=== PATIENT | male | born 1945 | race Caucasian/White ===

== ENCOUNTER 2020-09-21 08:50 | Outpatient (CLI) | payer MEDICARE, MEDICAID, SELFPAY ==
--- NOTE | ~2020-09-21 | US_ITS ---
EXAMINATION: US retroperitoneal comp DATE: 09/21/2020 09:41 INDICATION: Left renal mass TECHNIQUE: Multiple ultrasound grayscale images of the kidneys were obtained. COMPARISON: CT dated 02/26/2018 and 05/11/2015 FINDINGS: The right kidney measures 10.1 x 4.6 x 4.8 cm. The left kidney measures 11.0 x 5.7 x 5.0 cm. The kidn eys demonstrate normal echogenicity. 1.3 similar anechoic partially exophytic cyst at the lower pole of the left kidney. There is a second 3.0 cm anechoic cyst along side the superior pole of the left k idney. Upon review of prior coronal CT images from the study dated 2017 there appears to be a thin in tervening fat plane between the cystic lesion in the kidney and would favor a pancreatic pseudocyst i n the region of the tail of the pancreas which is difficult to discern due to diffuse fatty atrophy. There is no hydronephrosis in either kidney. No stones identified. The bladder is unremarkable but i ncompletely distended which mildly limits evaluation. IMPRESSION: 1. 1.3 cm cyst at the lower pole of the left kidney. The second 3 cm cystic structure near the upper pole the left kidney appears separate from the kidney on the prior CT images and would favor a pseud ocyst in the region of the tail of the pancreas. Correlate clinically for history of prior pancreatit is. Reviewed, dictated and finalized at location A. [facility] IMPRESSION: 1. 1.3 cm cyst at the lower pole of the left kidney. The second [address] ructure near the upper pole the left kidney appears separate from the kidney on the prior CT images and would favor a pseudocyst in the region of the tail of the pancreas. Correlate clinically for history of prior pancreatitis.
== END 2020-09-21 08:51 | disposition home or self-care (01) ==
PROVIDERS: PCP Internal Medicine; Visit Provider Internal Medicine
DX: N28.89 Other specified disorders of kidney and ureter (principal)
CPT/HCPCS: 76770

== ENCOUNTER 2020-12-10 22:08 | Emergency (ER) | payer MEDICARE, MEDICAID, SELFPAY ==
--- NOTE | ~2020-12-10 | CT_ITS ---
EXAMINATION: CT abdomen pelvis w con EXAM DATE: 12/11/2020 00:21 INDICATION: Mid abdominal pain for 7 hours, history of pancreas being removed. TECHNIQUE: Spiral CT of the abdomen and pelvis was performed following intravenous injection of 100 m L Omnipaque 350. Axial, coronal and sagittal images were reviewed. The dose-length product (DLP) fo r this examination was 1430.25 mGy-cm. The exposure was tailored according to patient size (auto mA exposure control), and iterative reconstruction (ASIR) was used as additional dose reduction techniqu e. Comparison is made to prior examination from 02/26/2018. FINDINGS: Moderately distended jejunum to the mid small bowel, where there is a midline abdominal tra nsition point indicated on axial image 105. Most likely adhesion related small bowel obstruction. The re is a small fat-containing abdominal wall hernia at the same level. Nearly collapsed ileum distal t o this, and only small amount of colonic stool. Patient has had subtotal colectomy, with an intact an astomosis site. There is moderate colonic diverticulosis. There is no adjacent inflammatory change t o suggest diverticulitis. Evidence of prior colostomy. Mildly diffusely heterogeneous low density liver without focal abnormality. Hepatic steatosis. Surgic al changes from pancreatic resection. Couple of contiguous cystic regions at the splenic hilum, large r lobulation measuring 3.4 x 2.8 cm (previously 3.0 x 2.4). Could be pseudocysts given that no histor y of cancer has been indicated, but can't exclude slow growing cystic pancreatic neoplasm, please cor relate this finding with patient's reason for pancreatic resection. There are cholecystectomy clips. Portal and splenic veins are patent. Kidneys enhance symmetrically . There is no hydronephrosis. There is 8 mm right adrenal gland adenoma unchanged compared to 2018. Spleen is unremarkable. Small splenule. The prostate is unremarkable. The bladder is unremarkable. There is no retroperitoneal or pelvic lymphadenopathy. There is moderate scattered arterioscleroti c disease. The heart is normal in size. There are no pericardial or pleural effusions. There are bibasilar tracy ear opacities, subsegmental atelectasis. There are no osteoblastic or osteolytic lesions identified. IMPRESSION: 1. Mid small bowel obstruction, probably adhesion etiology. 2. Pancreatic resection. Bilobulated cystic region at the splenic hilum, slight increase in size com pared to 2018. 3. Colonic diverticulosis. 4. Adrenal adenoma. 5. Hepatic steatosis. Reviewed, dictated and finalized at location A. IMPRESSION: 1. Mid small bowel obstruction, probably adhesion etiology. 2. Pancreatic resection. Bilobulated cystic region at the splenic hilum, sligh t increase in size compared to 2018. 3. Colonic diverticulosis. 4. Adrenal adenoma. 5. Hepatic steatosis.
[2020-12-10 22:15] VITALS: BP 178/93; PULSE 78; RESP 18; TEMP 36.6; O2SAT 98
--- NOTE | 2020-12-10 22:21 | ED.ABDPAIN ---
HPI - Abdominal Pain General Chief Complaint: Abdominal Pain Stated Complaint: amb Time Seen by Provider: 12/10/20 22:21 Source: patient Mode of arrival: EMS Limitations: no limitations History of Present Illness HPI narrative: 75-year-old man with a history of hypertension and diabetes comes in today complaining of abdominal pain that started this afternoon. Patient states that about 4 or 5 pm he began having abdominal pain but seemed to resolved. Pain came back after he ate at approximately 6:00 p.m.. Patient states he feels like he has to have a bowel movement but can't also complains of nausea but states he can't vomit. He denies chest pain, shortness breath, cough or cold symptoms, fever, dysuria, hematuria or prior similar symptoms. Patient states that he has had partial colectomy and a pancreatectomy in the past. He does not know why those procedures were performed. MD elicited complaint: abdominal pain Onset (ago): hour(s) (6) Pain Consistency: constant Location: diffuse Severity: severe Quality: cramping and sharp Radiation: none Migration to: no migration Exacerbating factors: movement Relieving factors: nothing Associated symptoms: nausea and constipation Related Data Home Medications Medication Instructions Recorded Confirmed carvedilol See Rx Instructions .ROUTE .COMPLEX 12/10/20 12/10/20 insulin aspart U-100 [Novolog See Rx Instructions .ROUTE .COMPLEX 12/10/20 12/10/20 U-100 Insulin aspart] insulin detemir U-100 [Levemir See Rx Instructions .ROUTE .COMPLEX 12/10/20 12/10/20 U-100 Insulin] [id number]-zevdgbqi-[id number] [Zenpep] 1 cap PO TID 12/10/20 12/10/20 losartan See Rx Instructions .ROUTE .COMPLEX 12/10/20 12/10/20 pravastatin See Rx Instructions .ROUTE .COMPLEX 12/10/20 12/10/20 tamsulosin See Rx Instructions .ROUTE .COMPLEX 12/10/20 12/10/20 Allergies Allergy/AdvReac Type Severity Reaction Status Date / Time No Known Allergies Allergy Verified 12/10/20 22:40 Review of Systems Constitutional: Constitutional: Denies chills, Denies fever(s) and Denies weakness Eyes: Eyes: Denies change in vision and Denies photophobia ENT: Denies dysphagia, Denies nasal congestion and Denies sore throat Cardiovascular: Cardiovascular: Denies chest pain and Denies radiating jaw, neck or arm pain Respiratory: Respiratory: Denies cough, Denies dyspnea and Denies wheezing Gastrointestinal: Gastrointestinal: Reports abdominal pain, Reports bloating, Denies diarrhea, Reports nausea and Denies vomiting Genitourinary: Genitourinary: Denies dysuria and Denies urinary frequency Musculoskeletal: Musculoskeletal: Denies back pain, Denies arthralgias and Denies joint swelling Integumentary/Breasts: Skin/Breast: Denies pruritus, Denies erythema and Denies rash Neurologic: Denies vertigo, Denies dizziness and Denies syncope Hematologic/Lymphatic: Hematologic/Lymphatic: Denies easy bleeding and Denies easy bruising Allergic/Immunologic: Allergic/Immunologic: Denies lip swelling and Denies throat swelling PMFSH Past Medical History Medical History (Updated 12/11/20 @ 01:39 by Gómez Mckeon MD) BPH (benign prostatic hyperplasia) Coronary artery disease Diabetes Dyslipidemia Hypertension Surgical History Surgical History (Updated 12/10/20 @ 22:33 by Gómez Mckeon MD) History of pancreatectomy History of partial colectomy Social History Social History (Updated 12/10/20 @ 22:34 by Gómez Mckeon MD) Smoking status: Never smoker Alcohol intake: never Substance use: never Exam Const: General: alert and ill appearing acutely Nutritional Appearance: obese Orientation/consciousness: patient oriented x3 Other: moderate to severe distress. HENMT: Head: normal to inspection General nose exam: Normal nares present Face and sinus: normal facial exam Mouth: Yes moist mucous membranes Throat: posterior oropharynx normal Eyes: Conjunctivae: conjunctivae normal Pupils: Equal, round
[2020-12-10] MEDS: SODIUM CHLORIDE 0.9% IV 500 ML 999 ML IV CONT (22:41)
[2020-12-10] MEDS: ONDANSETRON INJ 4 MG/2 ML VIAL IV PUSH (22:42)
[2020-12-10] MEDS: HYDROmorphone HCL INJ (*CRX) 2 MG/ML VIAL 0.5 MG IV PUSH (22:43)
[2020-12-10] MEDS: PANTOPRAZOLE SODIUM IV 40 MG VIAL IV PUSH (22:45)
[2020-12-10 22:50] VITALS: BP 168/73; PULSE 88; RESP 16; O2SAT 92
[2020-12-10 23:22] LABS: Basophils Absolute Auto 0.02 K/mm3 (0.00-0.10); Basophils Percent Auto 0.2 % (0.0-1.0); Eosinophils Percent Auto 1.2 % (1.0-6.0); Hematocrit 46.2 % (37.0-46.0); Hemoglobin 15.7 g/dL (12.4-15.3); Immature Granulocyte Absolute 0.05 K/mm3 (0.00-0.00); Immature Granulocyte Percent A 0.6 % (0.0-0.0); Lymphocytes Absolute Auto 0.88 K/mm3 (1.10-4.50); Lymphocytes Percent Auto 10.9 % (18.0-42.0); Mean Corpuscular Hemoglobin 30.7 pg (27.0-31.0); Mean Corpuscular Volume 90.2 fL (78.0-102.0); Mean Platelet Volume 9.4 fl (8.7-11.0); Monocytes Absolute Auto 0.29 K/mm3 (0.10-0.90); Monocytes Percent Auto 3.6 % (2.0-11.0); Neutrophils Absolute Auto 6.7 K/mm3 (1.7-7.2); Neutrophils Percent Auto 83.5 % (50.0-70.0); Platelet Count Result 164 K/mm3 (150-420); Red Blood Count 5.12 M/mm3 (4.70-6.10); Red Cell Distribution Width 14.6 % (11.6-14.4); White Blood Count 8.1 K/mm3 (4.8-10.8)
--- NOTE | 2020-12-10 23:24 | PC.NURSE ---
patient wanting water, explained can't until all test done, patient screaming get out & don't come back I hate you.
[2020-12-10 23:29] VITALS: BP 177/80; PULSE 90; RESP 18; O2SAT 90
[2020-12-10 23:35] LABS: Partial Thromboplastin Time 24.5 SEC (23.90-30.70); Prothrombin Time 10.9 Seconds (9.50-12.10)
[2020-12-10 23:40] LABS: Alanine Aminotransferase 114 U/L (16-63); Albumin Level 3.8 g/dL (3.4-5.0); Alkaline Phosphatase 186 U/L (46-116); Anion Gap 11 mmol/L (8-16); Aspartate Amino Transferase 80 U/L (15-37); Bilirubin,Total 1.1 mg/dL (0.00-1.00); Blood Urea Nitrogen 24 mg/dL (7-18); Calcium 8.7 mg/dL (8.5-10.1); Carbon Dioxide 26 mmol/L (21-32); Chloride 100 mmol/L (98-108); Estimated Glomerular Filt Rate 38; Glucose 382 mg/dL (70-99); Lipase 20 U/L (73-393); Osmolality Calculated 304 mOsm/kg (285-295); Potassium 4.5 mmol/L (3.5-5.1); Sodium 137 mmol/L (136-145); Total Protein 7.2 g/dL (6.4-8.2)
[2020-12-10 23:47] LABS: Lactic Acid Reflex 1.6 mmol/L (0.4-2.0)
[2020-12-11 01:23] VITALS: BP 168/70; PULSE 78; RESP 18; TEMP 36.6; O2SAT 92
--- NOTE | 2020-12-11 01:23 | PC.NURSE ---
called [facility] per patients request. Lauro to have MD call
[2020-12-11] MEDS: HYDROmorphone HCL INJ (*CRX) 2 MG/ML VIAL 0.5 MG IV PUSH (01:26)
[2020-12-11] MEDS: ONDANSETRON INJ 4 MG/2 ML VIAL IV PUSH ×2 (01:26→02:30)
[2020-12-11] MEDS: SODIUM CHLORIDE 0.9% IV 1,000 ML 150 ML IV CONT (02:50)
[2020-12-11 02:58] VITALS: BP 170/82; PULSE 90; RESP 22; TEMP 36.8; O2SAT 95
== END 2020-12-11 03:01 | disposition short-term general hospital (02) ==
PROVIDERS: Emergency Provider Emergency Medicine; PCP Internal Medicine
DX: K56.609 Unspecified intestinal obstruction, unspecified as to partial versus complete obstruction (principal); I25.10 Atherosclerotic heart disease of native coronary artery without angina pectoris; E11.9 Type 2 diabetes mellitus without complications; E78.5 Hyperlipidemia, unspecified; I10 Essential (primary) hypertension
CPT/HCPCS: 36415; 74177; 80053; 83605; 83690; 85025; 85610; 85730; 87040; 96374; 96375; 96376; 99285; C9113; J1170; J2405; J7030; J7040; Q9967

== ENCOUNTER 2022-06-05 12:06 | Outpatient (CLI) | payer MEDICARE, MEDICAID, SELFPAY ==
--- NOTE | ~2022-06-05 | XR_ITS ---
EXAM: XR foot LT min 3V DATE: 06/05/2022 12:47 HISTORY: L ant, post mid foot pain after kicking injury last night . COMPARISON: None available. FINDINGS: Decreased mineralization. Transverse minimally displaced fracture the proximal aspect of t he left fifth proximal phalange. No lytic or blastic lesion. Mild hallux valgus. Plantar enthesopathy . No erosion or periosteal change. Soft tissues within normal limits. IMPRESSION: Transverse, minimally displaced fracture the proximal aspect of the left fifth proximal p halange of uncertain age, correlate with pain/point tenderness. Reviewed, dictated and finalized at location K. IMPRESSION: Transverse, minimally displaced fracture the proximal aspect of the left fifth proximal phalange of uncertain age, correlate with pain/point tende rness.
== END 2022-06-05 12:07 | disposition home or self-care (01) ==
LOC: CHSIMG 12:09
PROVIDERS: PCP Internal Medicine; Visit Provider Nurse Practitioner Family
DX: M79.672 Pain in left foot (principal); S99.922A Unspecified injury of left foot, initial encounter
CPT/HCPCS: 73630

== ENCOUNTER 2023-03-22 12:25 | Observation (INO) | payer MEDICARE, MEDICAID, SELFPAY ==
--- NOTE | ~2023-03-22 | XR_ITS ---
EXAMINATION: XR knee RT 3V DATE: 03/22/2023 12:52 INDICATION: Right knee injury and pain. TECHNIQUE: 3 views of right knee were obtained. COMPARISON: None. FINDINGS: There is lateral subluxation of tibia with respect to distal femur. No fracture. There is s evere osteoarthritis of medial compartment, moderate osteoarthritis of lateral compartment, and mild osteoarthritis of patellofemoral compartment. There is a small knee joint effusion. There is widespre ad subcutaneous edema. IMPRESSION: 1. Severe right knee osteoarthritis. 2. Small right knee joint effusion. Reviewed, dictated and finalized at location A.
--- NOTE | ~2023-03-22 | US_ITS ---
EXAMINATION: US venous doppler LE RT DATE: 03/22/2023 13:16 INDICATION: Right lower limb swelling. TECHNIQUE: Grayscale ultrasound images without and with compression and Doppler ultrasound images of the right lower extremity veins were obtained. COMPARISON: None. FINDINGS: There is thrombus in the right common femoral vein, profunda femoral vein, femoral vein, popliteal ve in, and posterior tibial and gastrocnemius veins. IMPRESSION: 1. Extensive deep vein thrombosis in right lower limb. I called this result to Dr. Garcia. Reviewed, dictated and finalized at location A.
[2023-03-22 12:30] VITALS: BP 186/81; PULSE 80; RESP 20; TEMP 36.5; O2SAT 96
--- NOTE | 2023-03-22 12:37 | ED.LOWEXIN ---
HPI - Extremity Injury (Lower) General Chief Complaint: Extremity Injury, Lower Stated Complaint: KNEE PAIN Time Seen by Provider: 03/22/23 12:29 Source: patient Mode of arrival: ambulatory Limitations: no limitations History of Present Illness MD complaint: knee injury (right) Onset (ago): day(s) (1) Injury: Right: knee Type of Injury: other (twisted accidentally) Place: home Severity: moderate Severity scale (1-10): 8 Relieving factors: rest Exacerbating factors: movement Context: walking Associated symptoms: able to partially bear weight and ambulatory Other symptoms: other (swelling of RLEx) Related Data Home Medications Medication Instructions Recorded Confirmed carvedilol 25 mg tablet See Rx Instructions .Route .COMPLEX 12/10/20 12/10/20 insulin aspart U-100 100 unit/mL See Rx Instructions .Route .COMPLEX 12/10/20 12/10/20 subcutaneous solution (Novolog U-100 Insulin aspart) insulin detemir U-100 100 unit/mL See Rx Instructions .Route .COMPLEX 12/10/20 12/10/20 subcutaneous solution (Levemir U-100 Insulin) nesxeb-dtyotyge-[id number] 1 cap PO TID 12/10/20 12/10/20 5,000-17,000-24,000 unit capsule, delayed rel (Zenpep) losartan 50 mg tablet See Rx Instructions .Route .COMPLEX 12/10/20 12/10/20 pravastatin 40 mg tablet See Rx Instructions .Route .COMPLEX 12/10/20 12/10/20 tamsulosin 0.4 mg capsule 0.4 mg PO DAILY 12/10/20 12/10/20 Allergies Allergy/AdvReac Type Severity Reaction Status Date / Time No Known Allergies Allergy Verified 03/22/23 12:41 Review of Systems Review of Systems: All systems reviewed & are unremarkable except as noted in HPI and below Constitutional: Constitutional: Reports no additional constitutional complaints Cardiovascular: Cardiovascular: Reports no additional cardiovascular complaints, Denies chest pain and Denies rapid heart rate Respiratory: Respiratory: Reports no additional respiratory complaints, Denies chest congestion and Denies cough Gastrointestinal: Gastrointestinal: Reports no additional gastrointestinal complaints, Denies abdominal pain and Denies bloating Musculoskeletal: Musculoskeletal: Reports no additional musculoskeletal complaints, Reports as per HPI, Reports arthralgias (right knee) and Reports muscle cramps (right Polo) Integumentary/Breasts: Skin/Breast: Reports system reviewed and no additional complaints, except as docu and Reports as per HPI Comments: edema RLEx Neurologic: Reports system reviewed and no additional complaints, except as documented and Reports as per HPI PMFSH Past Medical History Medical History BPH (benign prostatic hyperplasia) Coronary artery disease Diabetes Dyslipidemia Hypertension Surgical History Surgical History History of pancreatectomy History of partial colectomy Social History Social History Smoking status: Never smoker Alcohol intake: never Substance use: never Exam Const: General: healthy appearing and no acute distress Nutritional Appearance: well nourished and obese Orientation/consciousness: patient oriented x3 Limitations: no limitations HENMT: Head: normal to inspection Neck: Neck: normal visual inspection and no lymphadenopathy Chest: Chest palpation & inspection: normal inspection of the chest Resp: Effort & Inspection: normal respiratory effort, not labored and no retractions Cardio: Rate: regular rate Rhythm: regular rhythm Heart sounds: no murmurs GI: GI Palp: Yes Soft to palpation, No Tenderness to palpation present (GI), No Guarding due to palpation present (GI) and No Rigid due to palpation Skin: General skin exam: normal color Other: Edema R Polo Neuro: General: patient oriented x3 and moves all extremities Extrem: General: abnormal to inspection and edema (R Polo) right Other: te
[2023-03-22] MEDS: HYDROcodone/acetaminophen (*CRX) 5-325 MG TABLET 1 TAB PO (12:47)
[2023-03-22 13:54] LABS: Basophils Absolute Auto 0.03 K/mm3 (0.00-0.10); Basophils Percent Auto 0.4 % (0.0-1.0); Eosinophils Absolute Auto 0.17 K/mm3 (0.02-0.50); Eosinophils Percent Auto 2.4 % (1.0-6.0); Hematocrit 40.1 % (37.0-46.0); Hemoglobin 13.6 g/dL (12.4-15.3); Immature Granulocyte Absolute 0.04 K/mm3 (0.00-0.00); Immature Granulocyte Percent A 0.6 % (0.0-0.0); Mean Corpuscular HGB Conc 33.9 g/dL (32.0-36.0); Mean Corpuscular Hemoglobin 32.3 pg (27.0-31.0); Mean Corpuscular Volume 95.2 fL (78.0-102.0); Mean Platelet Volume 9.6 fl (8.7-11.0); Monocytes Absolute Auto 0.55 K/mm3 (0.10-0.90); Monocytes Percent Auto 7.8 % (2.0-11.0); Neutrophils Absolute Auto 5.1 K/mm3 (1.7-7.2); Neutrophils Percent Auto 71.8 % (50.0-70.0); Platelet Count Result 118 K/mm3 (150-420); Red Blood Count 4.21 M/mm3 (4.70-6.10); Red Cell Distribution Width 14.8 % (11.6-14.4); White Blood Count 7.1 K/mm3 (4.8-10.8)
[2023-03-22 14:07] LABS: Alanine Aminotransferase 123 U/L (16-63); Albumin Level 3.5 g/dL (3.4-5.0); Alkaline Phosphatase 223 U/L (46-116); Anion Gap 10 mmol/L (8-16); Aspartate Amino Transferase 66 U/L (15-37); Bilirubin,Total 0.5 mg/dL (0.00-1.00); Blood Urea Nitrogen 20 mg/dL (7-18); Calcium 8.7 mg/dL (8.5-10.1); Carbon Dioxide 27 mmol/L (21-32); Chloride 102 mmol/L (98-108); Estimated CRCL calculation 48 ml/min; Estimated Glomerular Filt Rate 44; Glucose 348 mg/dL (70-99); Osmolality Calculated 304 mOsm/kg (285-295); Sodium 139 mmol/L (136-145); Total Protein 7.1 g/dL (6.4-8.2)
[2023-03-22 14:10] LABS: Partial Thromboplastin Time 26.2 SEC (23.90-30.70); Prothrombin Time 10.5 Seconds (9.50-12.10)
[2023-03-22] MEDS: APIXABAN 2.5 MG TABLET 10 MG PO ×2 (14:53→20:50)
--- NOTE | 2023-03-22 14:57 | PM.IMHP ---
H&P: HPI History of Present Illness Date/Time: 03/22/23 14:57 Chief Complaint: Right lower extremity swelling and pain Narrative: Mr. Grajeda Is an 78-year-old gentleman who presented emergency room with complaints of right lower extremity swelling and pain. Patient states approximately 2 days ago he was getting up off of his couch and felt like he twisted his knee and he started having pain. Patient states the pain was not significant enough to take any Tylenol or ibuprofen. Patient states that the next morning he noticed he had swelling to his right lower extremity and the pain was mildly worse. Patient states over the next day the swelling and pain has significantly increased. Patient states he has chronic shortness of breath, but has not noticed any increasing shortness of breath. Patient denies any chest pain, lightheadedness, dizziness, syncopal, or near syncopal episodes. Patient states he has been taking all medications without any difficulty. Patient is extremely poor historian and knows that he take certain medications for his blood pressure and his cholesterol, but he is unsure of why he is on other medications. Patient states he does have a history of diabetes, secondary to having his pancreas removed, but he cannot tell me why his pancreas was removed. Patient states he also does have a history of DVT and multiple blood clots elsewhere in his body and was placed on an anticoagulant while at [facility] in [place], but he is unsure of how long ago this was and he cannot recall which leg he previously had a blood clot in. Did receive medical records from patient's primary care which does give a slightly more in-depth history. Per primary care's office patient has a known history of type 2 diabetes mellitus with hyperglycemia, hypertension, dyslipidemia, chronic kidney disease, chronic fatigue, RINCON, BPH, history of pulmonary embolism, and thoracic aortic aneurysm without rupture. There is no mention of pancreatic issues, but it does appear that patient is on pancrelipase with meals. Review of Systems Review of Systems: A 12 point review of systems was completed with patient all pertinent positive and negative per HPI the remainder are unremarkable. [facility] Past Medical History Medical History (Updated 03/22/23 @ 16:07 by Radha Goddard APRN) BPH (benign prostatic hyperplasia) Chronic kidney disease Coronary artery disease Diabetes Dyslipidemia Hypertension Pulmonary embolism Steatohepatitis, non-alcoholic Thoracic aortic aneurysm without rupture Surgical History Surgical History (Updated 03/22/23 @ 16:07 by Radha Goddard APRN) History of cholecystectomy History of pancreatectomy History of partial colectomy Social History Social History Smoking status: Never smoker Alcohol intake: never Substance use: never Substance use type: does not use Lack of Transportation: No Lack of Food: Never True Current Housing: I Have Housing Concerned About Future Housing: No Difficulty Paying Gas/Electric Bills: No Difficulty Paying for Meds: No Currently Unemployed: No Education: Decline to Answer Difficulty w/ Childcare or Family Care: No Spiritual care concerns: No Meds Home Medications and Allergies Home Medications Medication Instructions Recorded Confirmed Type carvedilol 25 mg tablet 25 mg PO BID 12/10/20 03/22/23 History insulin aspart U-100 100 unit/mL 60 unit subcut ACHS 12/10/20 03/22/23 History subcutaneous solution (Novolog U-100 Insulin aspart) insulin detemir U-100 100 unit/mL 120 unit subcut DAILY 12/10/20 03/22/23 History subcutaneous solution (Levemir U-100 Insulin) [id number]-[id number] 1 cap PO TIDWMEAL 12/10/20 03/22/23 History 5,000-17,000-24,000 unit capsule, delayed rel (Zenpep) losartan 50 mg tablet 50 mg PO DAILY 12/10/20 03/22/23 History pravastatin 40 m
[2023-03-22 15:00] VITALS: BP 182/80; PULSE 70; RESP 20; TEMP 36.7; O2SAT 96
[2023-03-22 16:00] VITALS: BP 165/73; PULSE 60; RESP 18; TEMP 36.3; O2SAT 98
[2023-03-22 16:55] LABS: Glucose Point of Care 178 mg/dl (65-105)
[2023-03-22] MEDS: oxyCODONE HCL (*CRX) 5 MG TAB IR PO ×2 (17:56→22:53)
[2023-03-22 18:06] LABS: Glucose Point of Care 166 mg/dl (65-105)
[2023-03-22 20:00] VITALS: BP 162/85; PULSE 65; RESP 17; RESP 18; TEMP 36.5; O2SAT 98
[2023-03-22 20:51] VITALS: PULSE 65
[2023-03-22] MEDS: carvediloL 12.5 MG TABLET 25 MG PO (20:51)
[2023-03-22] MEDS: traMADol HCL (*CRX) 50 MG TABLET PO (20:52)
[2023-03-22 20:53] LABS: Glucose Point of Care 271 mg/dl (65-105)
[2023-03-22] MEDS: INSULIN GLARGINE (*BKC) 1,000 UNITS/10 ML VIAL 120 UNITS SUB-Q (20:55)
[2023-03-22 23:55] VITALS: BP 162/85; PULSE 65; RESP 17; TEMP 36.5; O2SAT 98
--- NOTE | 2023-03-23 01:20 | PC.NURSE ---
Oxycodone given at this time for RLE pain at level 7.
--- NOTE | 2023-03-23 02:20 | PC.NURSE ---
Follow up pain score 0
--- NOTE | 2023-03-23 05:38 | PC.NURSE ---
Pt reports he is feeling much better, pain in RLE is greatly improved. States he would like to stay 1 extra day to make sure he is OK, also requesting a skin tag on buttocks be removed while he is here. Explained to pt he would need to see PCP for skin tag, but can ask SURGICAL SPECIALIST is possible. Pt states understanding.
--- NOTE | 2023-03-23 05:50 | PC.NURSE ---
Oxycodone given at this time for right knee pain at level 7
--- NOTE | 2023-03-23 06:23 | PC.NURSE ---
Follow up pain score 0
[2023-03-23 07:03] LABS: Anion Gap 9 mmol/L (8-16); Blood Urea Nitrogen 18 mg/dL (7-18); Carbon Dioxide 27 mmol/L (21-32); Chloride 101 mmol/L (98-108); Potassium 4.2 mmol/L (3.5-5.1); Sodium 137 mmol/L (136-145)
[2023-03-23 07:04] LABS: Alanine Aminotransferase 93 U/L (16-63); Albumin Level 3.3 g/dL (3.4-5.0); Alkaline Phosphatase 188 U/L (46-116); Aspartate Amino Transferase 29 U/L (15-37); Bilirubin,Total 0.7 mg/dL (0.00-1.00); Calcium 8.1 mg/dL (8.5-10.1); Estimated CRCL calculation 50 ml/min; Estimated Glomerular Filt Rate 49; Glucose 395 mg/dL (70-99); Osmolality Calculated 301 mOsm/kg (285-295); Total Protein 6.7 g/dL (6.4-8.2)
[2023-03-23 07:14] LABS: Basophils Absolute Auto 0.03 K/mm3 (0.00-0.10); Basophils Percent Auto 0.4 % (0.0-1.0); Eosinophils Absolute Auto 0.18 K/mm3 (0.02-0.50); Eosinophils Percent Auto 2.6 % (1.0-6.0); Hematocrit 39.8 % (37.0-46.0); Hemoglobin 13.4 g/dL (12.4-15.3); Immature Granulocyte Absolute 0.05 K/mm3 (0.00-0.00); Immature Granulocyte Percent A 0.7 % (0.0-0.0); Immature Platelet Fraction Pct 2.1 % (1.0-7.0); Lymphocytes Absolute Auto 1.47 K/mm3 (1.10-4.50); Lymphocytes Percent Auto 21.1 % (18.0-42.0); Mean Corpuscular HGB Conc 33.7 g/dL (32.0-36.0); Mean Corpuscular Hemoglobin 32.1 pg (27.0-31.0); Mean Corpuscular Volume 95.4 fL (78.0-102.0); Mean Platelet Volume 9.9 fl (8.7-11.0); Monocytes Absolute Auto 0.72 K/mm3 (0.10-0.90); Monocytes Percent Auto 10.3 % (2.0-11.0); Neutrophils Absolute Auto 4.5 K/mm3 (1.7-7.2); Neutrophils Percent Auto 64.9 % (50.0-70.0); Platelet Count Result 143 K/mm3 (150-420); Red Blood Count 4.17 M/mm3 (4.70-6.10); Red Cell Distribution Width 14.6 % (11.6-14.4)
--- NOTE | 2023-03-23 07:16 | PM.SD2 ---
Same Day Admit/Disch: HPI History of Present Illness Chief complaint: KNEE PAIN Narrative: Dion Grajeda is a 78 year old male [facility] Past Medical History Medical History BPH (benign prostatic hyperplasia) Chronic kidney disease Coronary artery disease Diabetes Dyslipidemia Hypertension Leg pain Pulmonary embolism Steatohepatitis, non-alcoholic Thoracic aortic aneurysm without rupture Surgical History Surgical History History of cholecystectomy History of pancreatectomy History of partial colectomy Social History Social History Smoking status: Never smoker Alcohol intake: never Substance use: never Substance use type: does not use Lack of Transportation: No Lack of Food: Never True Current Housing: I Have Housing Concerned About Future Housing: No Difficulty Paying Gas/Electric Bills: No Difficulty Paying for Meds: No Currently Unemployed: No Education: Decline to Answer Difficulty w/ Childcare or Family Care: No Spiritual care concerns: No Same Day Admit/Disch: Med Pre-admit Medications Home Medications Medication Instructions Recorded Confirmed Type carvedilol 25 mg tablet 25 mg PO BID 12/10/20 03/22/23 History insulin aspart U-100 100 unit/mL 60 unit subcut ACHS 12/10/20 03/22/23 History subcutaneous solution (Novolog U-100 Insulin aspart) insulin detemir U-100 100 unit/mL 120 unit subcut DAILY 12/10/20 03/22/23 History subcutaneous solution (Levemir U-100 Insulin) [id number]-[id number]-zuavnnz 1 cap PO TIDWMEAL 12/10/20 03/22/23 History 5,000-17,000-24,000 unit capsule, delayed rel (Zenpep) losartan 50 mg tablet 50 mg PO DAILY 12/10/20 03/22/23 History pravastatin 40 mg tablet 40 mg PO DAILY 12/10/20 03/22/23 History tamsulosin 0.4 mg capsule 0.8 mg PO DAILY 12/10/20 03/22/23 History aspirin 81 mg chewable tablet 81 mg PO DAILY 03/22/23 03/22/23 History fluticasone propionate 50 2 spray intranasal HS 03/22/23 03/22/23 History mcg/actuation nasal spray,suspension tramadol 50 mg tablet 50 mg PO Q6H PRN pain #20 tabs 03/23/23 Rx DS: Data Data Completed and Pending Labs on day of discharge: Labs from last 24 hours 03/23/23 03/22/23 03/22/23 05:00 20:48 18:00 WBC Pending RBC Pending Hgb Pending Hct Pending MCV Pending MCH Pending MCHC Pending RDW Pending Plt Count Pending MPV Pending Immature Gran % (Auto) Pending Neut % (Auto) Pending Lymph % (Auto) Pending Petroleum % (Auto) Pending Eos % (Auto) Pending Baso % (Auto) Pending Lymph # (Auto) Pending Petroleum # (Auto) Pending Eos # (Auto) Pending Baso # (Auto) Pending Abs Immat Gran (auto) Pending Absolute Neuts (auto) Pending Absolute Nucleated RBC Pending Nucleated RBC % Pending PT INR APTT Sodium 137 Potassium 4.2 Chloride 101 Carbon Dioxide 27 Anion Gap 9 BUN 18 Creatinine 1.39 H Estim Creat Clear Calc 50 Estimated GFR 49 L Glucose 395 H POC Capillary Glucose 271 H 166 H Calculated Osmolality 301 H Calcium 8.1 L Magnesium 2.0 Total Bilirubin 0.7 AST 29 ALT 93 H Alkaline Phosphatase 188 H Total Protein 6.7 Albumin 3.3 L 03/22/23 03/22/23 16:48 13:49 WBC 7.1 RBC 4.21 L Hgb 13.6 Hct 40.1 MCV 95.2 MCH 32.3 H MCHC 33.9 RDW 14.8 H Plt Count 118 L MPV 9.6 Immature Gran % (Auto) 0.6 H Neut % (Auto) 71.8 H Lymph % (Auto) 17.0 L Petroleum % (Auto) 7.8 Eos % (Auto) 2.4 Baso % (Auto) 0.4 Lymph # (Auto) 1.20 Petroleum # (Auto) 0.55 Eos # (Auto) 0.17 Baso # (Auto) 0.03 Abs Immat Gran (auto) 0.04 H Absolute Neuts (auto) 5.1 Absolute Nucleated RBC 0.00 Nucleated RBC % 0.0 PT 10.5 INR 1.0 APTT 26.2 Sodium 139 Pot
--- NOTE | 2023-03-23 07:40 | PM.DS ---
DS: Admitting Diagnosis Discharge Date 03/23/2023 Admitting Diagnosis Swollen leg Possible DVT , [place], Acute on chronic kidney disease DS: Discharge Diagnosis Discharge Diagnosis (1) Leg pain: Code(s): M79.606 - Pain in leg, unspecified Status: Acute (2) DVT (deep venous thrombosis): Qualifiers: Affected thrombotic vein of extremity: unspecified lower extremity distal vein Chronicity: acute DVT location: lower extremity Laterality: right Qualified Code(s): I82.4Z1 - Acute embolism and thrombosis of unspecified deep veins of right distal lower extremity Code(s): I82.409 - Acute embolism and thrombosis of unspecified deep veins of unspecified lower extremity Status: Acute (3) Chronic kidney disease: Code(s): N18.9 - Chronic kidney disease, unspecified Status: Acute (4) Diabetes: Code(s): E11.9 - Type 2 diabetes mellitus without complications Status: Acute (5) Hypertension: Code(s): I10 - Essential (primary) hypertension Status: Acute (6) Coronary artery disease: Code(s): I25.10 - Atherosclerotic heart disease of [place] coronary artery without angina pectoris Status: Acute Plan A/P 1. Extensive DVT to right lower extremity- patient does have an extensive DVT noted to right lower extremity. It is unclear of why patient's anticoagulation was discontinued after his 1st blood clot. Patient states that he had multiple embolisms at that time. Will attempt to obtain records from [facility] in [place], [place]. Patient can be started on apixaban 10 mg every 12 hours for 7 days and this can be reduced to 5 mg b.i.d.. After reviewing guidelines patient can be started on oral anticoagulation as long is his INR is within normal limits at baseline, because he does have liver dysfunction. Patient did receive a dose of apixaban 10 mg in the emergency room and will continue with this medication every 12 hours. Patient will be monitored overnight for any increasing shortness of breath, tachycardia, or hypoxia that may be indicative of a pulmonary embolism. At this time patient is showing no signs or symptoms of pulmonary embolism and is on full anticoagulation. Will have pain medication available for any complaints of pain. Will avoid Tylenol since patient does have a history of RINCON and will avoid NSAIDs since patient does have a history of chronic kidney disease and is now on anticoagulation. Patient will need to follow-up with his primary care for further decisions on any workup to evaluate patient for why he has had multiple blood clots over his lifetime. At this time patient needs to be anticoagulated. 2. Chronic kidney disease- it appears that patient's serum creatinine is typically at 1.4-1.5 and patient is at 1.52 today so he is at baseline. 3. Diabetes mellitus- Will resume appropriate home medications once a verified medication list has been obtained. Will have blood glucose monitoring before meals and at bedtime with sliding scale insulin available. 4. Rincon- patient has a known history of transaminitis and is followed by his primary care. Patient's liver enzymes are stable from previous laboratories. 5. Hypertension- Will resume patient's home medications once verified home medication list and adjust medications accordingly for optimal blood pressure control. 6. Dysfunction of pancreas- I am unable to find a true history of why patient has pancreatic dysfunction, but he is on pancrelipase so will continue with this medication. VTE: Patient is placed on apixaban 10 mg b.i.d. which will cover him for any further VTE prophylaxis. Dispo: Patient was placed observation status for expected length of stay less than 23 hours for management, will plan to re-evaluate tomorrow for improvement. Code Status: Full code DS: Summary Hospital Course Reason for hospitalization: Acute Kidney injury, Right lower extremity swelling Hospital Course:
[2023-03-23 08:00] VITALS: BP 146/76; PULSE 76; RESP 18; TEMP 36.6; O2SAT 93
[2023-03-23 09:17] VITALS: PULSE 76
[2023-03-23] MEDS: APIXABAN 2.5 MG TABLET 10 MG PO (09:17)
[2023-03-23] MEDS: TAMSULOSIN HCL 0.4 MG CAPSULE 0.8 MG PO (09:17)
[2023-03-23] MEDS: carvediloL 12.5 MG TABLET 25 MG PO (09:17)
[2023-03-23] MEDS: PRAVASTATIN SODIUM 20 MG TABLET 40 MG PO (09:18)
[2023-03-23] MEDS: ASPIRIN 81 MG CHEWABLE TABLET PO (09:18)
[2023-03-23] MEDS: LOSARTAN POTASSIUM 50 MG TABLET PO (09:18)
[2023-03-23] MEDS: INSULIN HUMAN LISPRO (*BKC) 1,000 UNITS/10 ML VIAL 60 UNITS SUB-Q (09:36)
[2023-03-23 09:38] LABS: Glucose Point of Care 384 mg/dl (65-105)
[2023-03-23] MEDS: traMADol HCL (*CRX) 50 MG TABLET PO (09:49)
--- NOTE | 2023-03-23 10:10 | PC.NURSE ---
Reviewed discharge paperwork with patient. All questions answered. Pt transported via wheelchair to [facility] where he requested to wait alone for his ride.
--- NOTE | 2023-03-28 15:47 | PC.NURSE ---
Unable to contact for discharge call back.
== END 2023-03-23 10:10 | disposition home or self-care (01) ==
LOC: CHSED 13:56 → CHS2ND 14:50
PROVIDERS: Nurse Practitioner Adult Health; Admitting Provider Internal Medicine; Emergency Provider Emergency Medicine; PCP Internal Medicine; Visit Provider Internal Medicine
DX: I82.411 Acute embolism and thrombosis of right femoral vein (principal); I82.431 Acute embolism and thrombosis of right popliteal vein; I82.441 Acute embolism and thrombosis of right tibial vein; I82.461 Acute embolism and thrombosis of right calf muscular vein; E89.1 Postprocedural hypoinsulinemia; E13.22 Other specified diabetes mellitus with diabetic chronic kidney disease; N18.9 Chronic kidney disease, unspecified; I12.9 Hypertensive chronic kidney disease with stage 1 through stage 4 chronic kidney disease, or unspecified chronic kidney disease; I25.10 Atherosclerotic heart disease of native coronary artery without angina pectoris; I71.20 Thoracic aortic aneurysm, without rupture, unspecified; E78.5 Hyperlipidemia, unspecified; K75.81 Nonalcoholic steatohepatitis (NASH); N40.0 Benign prostatic hyperplasia without lower urinary tract symptoms; Z90.410 Acquired total absence of pancreas; Z79.4 Long term (current) use of insulin; Z86.711 Personal history of pulmonary embolism; Z79.82 Long term (current) use of aspirin
CPT/HCPCS: 36415; 73562; 80053; 82948; 83735; 85025; 85055; 85610; 85730; 93971; 97161; 99285; A9270; G0378; J1815

== ENCOUNTER 2023-04-17 12:34 | Outpatient (CLI) | payer MEDICARE, MEDICAID, SELFPAY ==
--- NOTE | ~2023-04-17 | US_ITS ---
EXAMINATION: US art doppler w press LE BI DATE: 04/17/2023 13:34 INDICATION: Bilateral lower limb swelling and bleeding ulcer at the right lower limb TECHNIQUE: Segmental pressures and plethysmographic and Doppler waveforms of the brachial and lower e xtremity arteries were obtained. COMPARISON: None. FINDINGS: Right and left brachial artery pressures of 147 mm Hg and 163 mm Hg, respectively, are concordant (no rmal difference <= 30 mmHg). The right ankle-brachial index (ARIEL) is 1.23 (normal >= 0.9-1). The right great toe-brachial index (T BI) is 0.74 (normal >= 0.6-0.8). Arterial waveforms are triphasic with brisk systolic upstrokes at th e right femoral, popliteal, posterior tibial and dorsalis pedis arteries. The left ARIEL is 1.25. The left TBI is 0.68. Arterial waveforms are triphasic with brisk systolic upst rokes at the left femoral, popliteal, posterior tibial and dorsalis pedis arteries. IMPRESSION: 1. Normal ARIEL's and TBI's bilaterally. No significant occlusive disease. Reviewed, dictated and finalized at location A.
== END 2023-04-17 12:35 | disposition home or self-care (01) ==
LOC: CHSIMG 12:36
PROVIDERS: PCP Internal Medicine; Visit Provider Internal Medicine
DX: I73.9 Peripheral vascular disease, unspecified (principal)
CPT/HCPCS: 93923

== ENCOUNTER 2023-06-12 00:52 | Emergency (ER) | payer MEDICARE, MEDICAID, SELFPAY ==
[2023-06-12 00:57] VITALS: BP 165/87; PULSE 73; RESP 16; TEMP 36.4; O2SAT 97
--- NOTE | 2023-06-12 01:15 | ED.EPISTAXIS ---
HPI - Epistaxis General Chief complaint: Epistaxis Stated complaint: Nose Bleed Source: patient Mode of arrival: EMS Limitations: no limitations History of Present Illness HPI Narrative: 78 year old male arrives to the Emergency Department via EMS. Patient had spontaneous nose bleed right side tonight. Takes Eliquis. Denies any nasal trauma or recent runny nose. MD complaint: epistaxis Location: right nostril Onset (ago): hour(s) (2) Context: other anticoagulant use Treatment prior to arrival: nose pinching Related Data Home Medications Medication Instructions Recorded Confirmed carvedilol 25 mg tablet 25 mg PO BID 12/10/20 03/22/23 insulin aspart U-100 100 unit/mL 60 unit subcut ACHS 12/10/20 03/22/23 subcutaneous solution (Novolog U-100 Insulin aspart) insulin detemir U-100 100 unit/mL 120 unit subcut DAILY 12/10/20 03/22/23 subcutaneous solution (Levemir U-100 Insulin) [id number]-qmsawmzv-tyvcoaj 1 cap PO TIDWMEAL 12/10/20 03/22/23 5,000-17,000-24,000 unit capsule, delayed rel (Zenpep) losartan 50 mg tablet 50 mg PO DAILY 12/10/20 03/22/23 pravastatin 40 mg tablet 40 mg PO DAILY 12/10/20 03/22/23 tamsulosin 0.4 mg capsule 0.8 mg PO DAILY 12/10/20 03/22/23 aspirin 81 mg chewable tablet 81 mg PO DAILY 03/22/23 06/12/23 fluticasone propionate 50 2 spray intranasal HS 03/22/23 03/22/23 mcg/actuation nasal spray,suspension Allergies Allergy/AdvReac Type Severity Reaction Status Date / Time No Known Allergies Allergy Verified 06/12/23 01:26 Review of Systems Review of Systems: All systems reviewed & are unremarkable except as noted in HPI and below Constitutional: Constitutional: Reports as per HPI, Denies chills and Denies fever(s) Eyes: Eyes: Reports as per HPI ENT: Reports system reviewed and no additional complaints, except as documented and Denies nasal congestion Cardiovascular: Cardiovascular: Reports as per HPI Respiratory: Respiratory: Reports as per HPI Gastrointestinal: Gastrointestinal: Reports as per HPI Genitourinary: Genitourinary: Reports no additional male genitourinary complaints Musculoskeletal: Musculoskeletal: Reports no additional musculoskeletal complaints Integumentary/Breasts: Skin/Breast: Reports system reviewed and no additional complaints, except as docu Neurologic: Reports system reviewed and no additional complaints, except as documented Hematologic/Lymphatic: Hematologic/Lymphatic: Reports no additional hematologic/lymphatic complaints PMFSH Past Medical History Medical History BPH (benign prostatic hyperplasia) Chronic kidney disease Coronary artery disease Diabetes Dyslipidemia Hypertension Leg pain Pulmonary embolism Steatohepatitis, non-alcoholic Thoracic aortic aneurysm without rupture Surgical History Surgical History History of cholecystectomy History of pancreatectomy History of partial colectomy Social History Social History (Reviewed 06/12/23 @ :24 by Prashanth Stoll MD) Smoking status: Never smoker Alcohol intake: never Substance use: never Substance use type: does not use Lack of Transportation: No Lack of Food: Never True Current Housing: I Have Housing Concerned About Future Housing: No Difficulty Paying Gas/Electric Bills: No Difficulty Paying for Meds: No Currently Unemployed: No Education: Decline to Answer Difficulty w/ Childcare or Family Care: No Spiritual care concerns: No Exam Const: General: healthy appearing, no acute distress and alert Nutritional Appearance: well nourished Orientation/consciousness: patient oriented x3 Limitations: no limitations HENMT: Head: normal to inspection Ears: external ears normal Face/Nose/Sinus: Epistaxis present (dried blood in right nares) on the right Face and sinus: normal facial exam Mouth: Yes Normal oral and palatal mucosa
[2023-06-12 02:35] VITALS: BP 178/74; PULSE 74; RESP 22; TEMP 36.4; O2SAT 97
--- NOTE | 2023-06-12 02:36 | PC.NURSE ---
Discharge instructions including follow up (PCP contact provided) presented to patient who verbalized understanding. Patient awaiting ride home, phoned his ride and left message on machine. Patient resting on stretcher without distress. Bleeding from R nare controlled.
[2023-06-12 04:23] VITALS: BP 169/81; PULSE 81; RESP 20; TEMP 36.2; O2SAT 97
--- NOTE | 2023-06-12 04:32 | PC.NURSE ---
patient awake and alert, vss. no active nasal drainage. patient remains awaiting ride home.
--- NOTE | 2023-06-12 05:37 | PC.NURSE ---
RN phoned patient ride again, no answer. left message on machine.
[2023-06-12 06:37] VITALS: BP 161/70; PULSE 70; RESP 20; TEMP 36.2; O2SAT 97
== END 2023-06-12 06:48 | disposition home or self-care (01) ==
LOC: CHSED 01:57
PROVIDERS: Emergency Provider Emergency Medicine; PCP Internal Medicine
DX: R04.0 Epistaxis (principal); I25.10 Atherosclerotic heart disease of native coronary artery without angina pectoris; I12.9 Hypertensive chronic kidney disease with stage 1 through stage 4 chronic kidney disease, or unspecified chronic kidney disease; E11.22 Type 2 diabetes mellitus with diabetic chronic kidney disease; N18.9 Chronic kidney disease, unspecified; E78.5 Hyperlipidemia, unspecified; K75.81 Nonalcoholic steatohepatitis (NASH); I71.20 Thoracic aortic aneurysm, without rupture, unspecified; Z86.711 Personal history of pulmonary embolism; Z79.4 Long term (current) use of insulin; Z79.82 Long term (current) use of aspirin; Z79.01 Long term (current) use of anticoagulants
CPT/HCPCS: 99281

== ENCOUNTER 2025-07-23 08:26 | Outpatient (CLI) | payer MEDICARE, SELFPAY ==
[2025-07-23 08:47] LABS: Hematocrit 36.2 % (37.0-46.0); Hemoglobin 12.0 g/dL (12.4-15.3); Immature Granulocyte Percent A 0.9 % (0.0-0.0); Immature Platelet Fraction Pct 2.8 % (1.0-7.0); Lymphocytes Absolute Auto 1.50 K/mm3 (1.10-4.50); Mean Corpuscular HGB Conc 33.1 g/dL (32-36); Mean Corpuscular Hemoglobin 30.5 pg (27.0-31.0); Mean Corpuscular Volume 91.9 fL (78.0-102.0); Nucleated Red Blood Cells Absolute Auto 0.00 K/mm3 (0.00-0.00); Nucleated Red Blood Cells Perc 0.0 % (0-0.0); Platelet Count Result 102 K/mm3 (150-420); Red Blood Count 3.94 M/mm3 (4.70-6.10); White Blood Count 5.8 K/mm3 (4.8-10.8)
[2025-07-23 08:54] LABS: Hemoglobin A1C 8.0 % (<5.7)
[2025-07-23 08:55] LABS: Add Urine Microscopic? YES; Appearance Urine Clear (Clear); Glucose Urine UA Negative (Negative); Leukocyte Esterase Ur Negative LEU/UL (Negative); Nitrate Urine Negative (Negative); Specific Grav Ur 1.025 (1.010-1.020)
[2025-07-23 09:04] LABS: Alanine Aminotransferase 61 U/L (6-50); Albumin Level 4.2 g/dL (3.5-5.1); Alkaline Phosphatase 186 U/L (38-126); Anion Gap 9 mmol/L (4-12); Aspartate Amino Transferase 40 U/L (17-59); Bilirubin,Total 0.5 mg/dL (0.2-1.3); Blood Urea Nitrogen 28 mg/dL (9-20); Calcium 8.5 mg/dL (8.4-10.2); Carbon Dioxide 25 mmol/L (22-30); Chloride 108 mmol/L (98-107); Cholesterol 127 mg/dL (0-200); Creatine Kinase 53 U/L (55-170); Estimated Glomerular Filt Rate 50; Glucose 142 mg/dL (65-110); HDL Direct 71 mg/dL; Iron 89 ug/dL (49-181); Osmolality Calculated 301 mOsm/kg (285-295); Potassium 4.1 mmol/L (3.4-5.0); Sodium 142 mmol/L (137-145); Total Protein 6.7 g/dL (6.3-8.2); Triglycerides 87 mg/dL (<150); Uric Acid 6.3 mg/dL (3.5-8.5)
[2025-07-23 09:34] LABS: Prostate Specific Antigen 6.0 ng/mL (< OR = 4.0)
[2025-07-23 09:38] LABS: Ferritin 49.40 ng/mL (11.1-264)
== END 2025-07-23 08:27 | disposition home or self-care (01) ==
PROVIDERS: PCP Internal Medicine; Visit Provider Internal Medicine
DX: E11.65 Type 2 diabetes mellitus with hyperglycemia (principal); N39.0 Urinary tract infection, site not specified; R97.20 Elevated prostate specific antigen [PSA]; D64.9 Anemia, unspecified; E78.2 Mixed hyperlipidemia
CPT/HCPCS: 36415; 80053; 80061; 81001; 82550; 82728; 83036; 83540; 84153; 84550; 85025; 85055